=== PATIENT | male | born 1975 | race Caucasian/White ===

== ENCOUNTER 2018-10-20 12:20 | Emergency (ER) | payer SELFPAY ==
[~2018-10-20] VITALS: Ht 175.3 cm; Wt 67.6 kg
--- NOTE | 2018-10-20 13:01 | NUR ---
PATIENT YURI 77, PD FOR PSYCH EVAL, PER REPORT THREATENING HIS GIRLFRIEND. REPORTED PATIENT HAD BEEN DRINKING FOR THE PAST 2 DAYS. PATIENT AWAKE, ALERT AND ORIENTED, NO ACUTE DISTRESS. DENIES ANY PAIN OR DISCOMFORT.
[2018-10-20] MEDS ORDERED: OLANZAPINE 10 MG VIAL IM ONE (13:18)
[2018-10-20] MEDS ORDERED: LORAZEPAM INJ 2 MG/ML VIAL ONE (13:18)
[2018-10-20] MEDS: OLANZAPINE 10 MG VIAL IM ONE (13:20)
[2018-10-20] MEDS: LORAZEPAM INJ 2 MG/ML VIAL IM ONE (13:20)
[2018-10-20 13:30] LABS: BASOPHILS # (AUTO) 0.1 /CMM (0.0-0.2); BASOPHILS % (AUTO) 1.1 % (0.0-2.0); EOSINOPHILS % (AUTO) 2.4 % (0.0-6.0); HEMATOCRIT 48 % (39-51); HEMOGLOBIN 16.2 g/dL (13.5-17.5); LYMPHOCYTES # (AUTO) 1.3 /CMM (0.8-4.8); LYMPHOCYTES % (AUTO) 23.2 % (20.0-44.0); MEAN CORPUSCULAR HGB CONC 34 g/dl (31.0-36.0); MEAN CORPUSCULAR VOLUME 103 fL (80-96); MONOCYTES # (AUTO) 0.5 /CMM (0.1-1.30); MONOCYTES % (AUTO) 9.6 % (2.0-12.0); NEUTROPHILS # (AUTO) 3.6 /CMM (1.8-8.9); NEUTROPHILS % (AUTO) 63.7 % (43.0-81.0); PLATELET COUNT (AUTO) 113 /CMM (150-450); WHITE BLOOD COUNT (AUTO) 5.7 K/uL (4.3-11.0)
[2018-10-20 13:48] LABS: ALBUMIN 4.1 g/dL (3.4-5.0); BILIRUBIN,DIRECT 0.3 mg/dL (0.0-0.2); BILIRUBIN,TOTAL 0.6 mg/dL (0.2-1.0); CALCIUM, SERUM 8.9 mg/dL (8.5-10.1); CREATININE 0.7 mg/dL (0.6-1.3); POTASSIUM 3.6 mmol/L (3.5-5.1); TOTAL PROTEIN, SERUM 8.5 g/dL (6.4-8.2)
--- NOTE | 2018-10-20 14:29 | NUR ---
URINE COLLECTED AND SENT T LAB
[2018-10-20 14:42] LABS: APPEARANCE,URINE Clear (CLEAR); BILIRUBIN,URINE Negative (NEGATIVE); BLOOD, URINE Negative Ery/uL (NEGATIVE); COLOR,URINE Yellow (YELLOW); KETONES,URINE Negative (NEGATIVE); LEUKOCYTE ESTERASE ,URINE Negative (NEGATIVE); NITRITE, URINE Negative (NEGATIVE); PROTEIN,URINE Negative (NEGATIVE); UGLUCOSE Negative (NEGATIVE)
[2018-10-20 14:58] LABS: BACTERIA,URINE Rare /HPF (None Seen); RBC,URINE NONE SEEN /HPF (0-2); SQUAMOUS EPITHELIAL CELL,UR Few /HPF (None Seen); WBC,URINE 0-2 /HPF (0-3)
--- NOTE | 2018-10-20 15:15 | NUR ---
GIRLFRIEND, YOAN AMOR, AT BEDSIDE. SPOKE WITH ER MD. LEFT CONTACT INFORMATION YOAN AMOR ([phone])
--- NOTE | 2018-10-20 15:18 | NUR ---
PER YOAN GOODWIN, PATIENT'S PSYCHIATRIST IS DR. URIAS ([phone])
--- NOTE | 2018-10-20 17:26 | NUR ---
PATIENT RESTING ON BED, AROUSABLE THROUGH VERBAL AND TACTILE STIMULI. NO ACUTE DISTRESS. WILL CONTINUE TO MONITOR
--- NOTE | 2018-10-20 19:39 | NUR ---
REPORT GIVEN TO AMARA STONE FOR ANISH
--- NOTE | 2018-10-20 20:30 | NUR ---
Patient is resting comfortably in bed with eyes closed. Easily aroused. VSS
--- NOTE | 2018-10-20 22:00 | NUR ---
Patient is resting comfortably in bed with eyes closed. Easily aroused. VSS
[2018-10-20 22:55] VITALS: BP 122/81
--- NOTE | 2018-10-20 22:55 | NUR ---
PATIENT DENYING SI AND HI AT THIS TIME. MD AWARE AND PT PREPARED FOR DISCHARGE.
== END 2018-10-20 22:56 | disposition home or self-care (01) ==
LOC: ER 12:20
DX: F31.9 Bipolar disorder, unspecified (principal); F10.129 Alcohol abuse with intoxication, unspecified; M79.671 Pain in right foot; Y90.8 Blood alcohol level of 240 mg/100 ml or more
CPT/HCPCS: 36415; 73610; 73630; 80048; 80076; 80305; 80307; 80329; 81001; 85025; 96372 ×2; 99284; G0480; J2060; J3490; 81000-TC